=== PATIENT | male | born 1955 | race Hispanic/Latino ===

== ENCOUNTER 2018-09-08 14:26 | Outpatient (CLI) | payer OTHER ==
--- NOTE | 2018-09-08 17:19 | Magnetic Resonance Report ---
MR LE joint RT wo/w con INDICATION / CLINICAL INFORMATION: RIGHT KNEE WAS FOUND TO BE TENDER/SWOLLEN/POSSIBLE DISTAL FEMORAL. TECHNIQUE: Multiplanar, multisequence MR images were obtained. COMPARISON: None available. FINDINGS: A small joint effusion is present. A heterogeneous lesion is seen in the distal femoral diaphysis mos t likely representing an enchondroma. Mild diffuse subcutaneous edema is present. Advanced degenerati ve changes present in the knee. No soft tissue mass is identified. Following the administration of intravenous contrast, there is mild enhancement of the femoral lesion .. IMPRESSION: 1. Heterogeneous appearing lesion in the distal femoral diaphysis with mild enhancement. This most li damian represents an and chondroma 2. Advanced degenerative change in the knee 3. Mild diffuse subcutaneous edema Signer Name: Aaron Swanson MD FACR Signed: 09/08/2018 5:14 PM Workstation Name: [id number]
== END 2018-09-08 14:27 | disposition home or self-care (01) ==
LOC: MRI 14:26
PROVIDERS: ATTEND Internal Medicine
DX: M17.11 Unilateral primary osteoarthritis, right knee (principal); R60.0 Localized edema
CPT/HCPCS: 73723; A9577